=== PATIENT | female | born 1955 | race Caucasian/White ===

== ENCOUNTER 2023-12-14 05:54 | Day surgery (SDC) | payer MEDICARE, MEDICAID, SELFPAY ==
[2023-11-12 10:19] VITALS: BMI 23.4
--- NOTE | 2023-12-14 07:11 | PM.HPGS ---
History of Present Illness History of Present Illness Consent: Risks, benefits, and alternatives have been discussed and questions answered. Patient agrees to proceed with procedure. Chief complaint: Neoplasm Screening Narrative: Gilma Recio is a 68 year old female Referred for colon cancer screening. Review of Systems Review of Systems: All systems reviewed & are unremarkable except as noted in HPI and below PMFSH Past Medical History Medical History HTN (hypertension) Smoker Social History Social History Smoking packs per day: 0.5 Smoking cigarettes per day: 10.0 Smoking status: Current every day smoker Substance use type: does not use Meds Home Medications and Allergies Home Medications Medication Instructions Recorded Confirmed Type Vitamin D3 1 tab-cap PO DIRECTED 11/26/23 12/14/23 History amlodipine 10 mg tablet 10 mg PO DAILY 11/26/23 12/14/23 History calcium 1 tab-cap PO DIRECTED 11/26/23 12/14/23 History losartan 100 mg tablet 100 mg PO DIRECTED 11/26/23 12/14/23 History mecobalamin (vitamin B12) 1 tab-cap PO DIRECTED 11/26/23 12/14/23 History Allergies Allergy/AdvReac Type Severity Reaction Status Date / Time No Known Allergies Allergy Mild Verified 12/14/23 07:24 Exam Resp: Auscultation: clear to auscultation bilaterally Cardio: Rate: regular rate Rhythm: regular rhythm GI: GI Palp: Yes Soft to palpation and No Tenderness to palpation present (GI) Assessment and Plan Assessment and plan (1) Colon cancer screening: Code(s): Z12.11 - Encounter for screening for malignant neoplasm of colon Status: Acute Assessment and Plan: Colonoscopy with possible biopsy or polypectomy or cautery or injection of substances.
[2023-12-14 07:26] VITALS: BP 126/82; PULSE 97; RESP 16; TEMP 36.5; O2SAT 100
[2023-12-14] MEDS: LACTATED RINGERS 1,000 ML 150 ML IV CONT (07:36)
--- NOTE | 2023-12-14 07:41 | P.PNAN_ITS ---
Anes - Initial Pre Proc Eval Procedure: Operation Date: 12/14/23 08:00 Proposed Procedures p Screening Colonoscopy - David Delgado MD Date/Time: 12/14/23 07:41 Surgeon: David Delgado MD Pre Op Diagnosis: Neoplasm Screening Patient Data Age: 68 Gender: F Height: 1.57 m Weight: 56.3 kg Last Vital Signs Temp 36.5 C 12/14/23 07:26 Pulse 97 12/14/23 07:26 Resp 16 12/14/23 07:26 BP 126/82 12/14/23 07:26 Pulse Ox 100 12/14/23 07:26 O2 Del Method Room Air 12/14/23 07:26 Allergies Allergy/AdvReac Type Severity Reaction Status Date / Time No Known Allergies Allergy Mild Verified 12/14/23 07:24 Home Medications Medication Instructions Recorded Confirmed Type Vitamin D3 1 tab-cap PO DIRECTED 11/26/23 12/14/23 History amlodipine 10 mg tablet 10 mg PO DAILY 11/26/23 12/14/23 History calcium 1 tab-cap PO DIRECTED 11/26/23 12/14/23 History losartan 100 mg tablet 100 mg PO DIRECTED 11/26/23 12/14/23 History mecobalamin (vitamin B12) 1 tab-cap PO DIRECTED 11/26/23 12/14/23 History Patient hx anesthesia problems: none Family hx anesthesia problems: none Results Review: All pre-operative results and documents have been reviewed as part of the pre- operative evaluation. [facility] Past Medical History Medical History HTN (hypertension) Smoker Social History Social History Smoking packs per day: 0.5 Smoking cigarettes per day: 10.0 Smoking status: Current every day smoker Substance use type: does not use Anes - Eval Final PreProcedure Day of Procedure 12/14/23 07:41 Patient weight: normal Heart: regular rate and rhythm Lungs: clear to auscultation Airway: Mallampati scale class II Neurological: alert and oriented Last oral intake: >/= 8 hours ASA classification: III Emergent: no Anesthetic plan: proceed Anesthesia type and monitoring: general GIVS and standard monitoring Results Review: All pre-operative results and documents have been reviewed as part of the pre- operative evaluation. Informed Consent: The patient's anesthetic plan and its attendant risks and benefits were discussed with the patient/family/POA. Questions were solicited and answers provided to the satisfaction of the patient/family/POA.
[2023-12-14 08:23] VITALS: BP 111/68; PULSE 76; RESP 15; O2SAT 99
[2023-12-14 08:33] VITALS: BP 111/75; PULSE 73; RESP 16; O2SAT 100
--- NOTE | 2023-12-14 08:33 | WPDANESPN ---
Anes - Prog Note Post-Op Date/Time: 12/14/23 08:33 Cardiovascular status: normal Respiratory status: normal Airway patency: baseline Mental status: baseline Post-Op hydration status: normal Vital Signs: Last Vital Signs Temp 36.5 C 12/14/23 07:26 Pulse 76 12/14/23 08:23 Resp 15 12/14/23 08:23 BP 111/68 12/14/23 08:23 Pulse Ox 99 12/14/23 08:23 O2 Del Method Room Air 12/14/23 08:23 Pain Score (VAS): 0/10 I/O: Intake & Output 12/13/23 12/14/23 12/14/23 23:59 07:59 15:59 Intake Total 400 Balance 400 Patient Feedback: Patient satisfied with anesthetic care.
[2023-12-14 08:43] VITALS: BP 125/67; PULSE 70; RESP 16; O2SAT 100
== END 2023-12-14 08:50 | disposition home or self-care (01) ==
PROVIDERS: PCP Family Medicine; Visit Provider Internal Medicine Gastroenterology
PROC: 0DJD8ZZ Inspection of Lower Intestinal Tract, Via Natural or Artificial Opening Endoscopic (ICD-10-PCS; CPT 45378; principal; 2023-12-14 08:00)
DX: Z12.11 Encounter for screening for malignant neoplasm of colon (principal); D12.5 Benign neoplasm of sigmoid colon; K57.30 Diverticulosis of large intestine without perforation or abscess without bleeding; K64.8 Other hemorrhoids
CPT/HCPCS: 45385

== ENCOUNTER 2023-12-14 07:00 | Outpatient (NON) | payer MEDICARE, MEDICAID, SELFPAY | END 2023-12-14 07:01 | disposition home or self-care (01) | LOC: ANHLAB 12-15 07:08 | PROVIDERS: PCP Family Medicine; Visit Provider Internal Medicine Gastroenterology | DX: Z12.11 Encounter for screening for malignant neoplasm of colon (principal); D12.5 Benign neoplasm of sigmoid colon | CPT/HCPCS: 88305 ==

== ENCOUNTER 2024-06-12 14:07 | Outpatient (CLI) | payer MEDICARE, MEDICAID, SELFPAY ==
--- NOTE | ~2024-06-12 | MM_ITS ---
EXAMINATION: MM screening [facility] BI w sandra HISTORY: Screening TECHNIQUE: Craniocaudal and mediolateral oblique 3-D tomosynthesis images were obtained and synthetic 2-D images were generated. CAD analysis was submitted and interpreted. COMPARISON: No prior mammogram is available for comparison at this institution. BREAST PARENCHYMAL COMPOSITION: Not dense: There are scattered areas of fibroglandular density. FINDINGS: There is no evidence of suspicious mass, calcification, or architectural distortion to sugg est malignancy in either breast. There has been no suspicious interval change. IMPRESSION: 1. No mammographic evidence of malignancy. 2. Recommend routine screening mammography in one year. BI-RADS Category 1: Negative Reviewed, dictated and finalized at location B. NSE ISSUER
== END 2024-06-12 14:08 | disposition home or self-care (01) ==
LOC: ANHIMG 14:08
PROVIDERS: PCP Family Medicine; Visit Provider Family Medicine
DX: Z12.31 Encounter for screening mammogram for malignant neoplasm of breast (principal)
CPT/HCPCS: 77063; 77067

== ENCOUNTER 2025-05-31 08:08 | Outpatient (CLI) | payer MEDICARE, MEDICAID, SELFPAY ==
--- NOTE | ~2025-05-31 | CT_ITS ---
EXAMINATION:CT lung screening DATE: 05/31/2025 08:26 INDICATION: Screening TECHNIQUE: Computed tomography (CT) of the chest was performed without intravenous contrast. The dose-length product (DLP) was 45.59 mGy-cm. COMPARISON: None. FINDINGS: No discretely defined nodular mass present. There is nodular fibrous appearing changes in the posterior right lung apex with air cysts formation. Parenchymal band formation in the right apical region has slightly nodular appearance and measures approximately 2.1 x 1.5 cm, image 18 series 4. Mild apical thickening also present in this area. Scattered calcified granulomas noted. Calcified granulomata also noted in the visualized portions of the liver and spleen in the upper abdomen. Heart size normal. Great vessels normal size. No bulky lymphadenopathy or masses or significant pericardial effusion. Extensive coronary artery calcification and/or stenting present. Diffuse degenerative changes in the bones which otherwise appear intact. No consolidation effusion or pneumothorax. Centrilobular emphysematous changes especially in the upper lobes noted. IMPRESSION: 1. No discretely defined lesion or mass, however there is nodular fibrosing appearing changes in the right lung apex. LUNG RADS-3. 2. Several other chronic appearing findings as above. RECOMMENDATION: Correlate with follow-up low-dose lung cancer screening chest CT in 6 months. Reviewed, dictated and finalized at location A. NDER MACHINE OPERATOR HELPER IMPRESSION: 1. No discretely defined lesion or mass, however there is nodular fibrosing pollo earing changes in the right lung apex. LUNG RADS-3. 2. Several other chronic appearing findings as above. RECOMMENDATION: Correlate with follow-up low-dose lung cancer screening chest C T in 6 months.
--- NOTE | ~2025-05-31 | DEXA_ITS ---
Bone Density Report Name: SOLO TOVAR Age: 69 Sex: Female Ethnicity: White Date of : 1955 Indication: postmenopausal; screening for osteoporosis; Referring Provider: JODIE, BLANCO Conroy Study: Bone densitometry was performed. Exam Date: May 31, 2025 Accession number: [id number] Bone Density: Region BMD T-score Z-score Classification AP Spine(L1-L4) 0.757 -2.6 -0.6 Osteoporosis Femoral Neck (Left) 0.737 -1.0 0.7 Normal Total Hip (Left) 0.797 -1.2 0.2 Osteopenia Femoral Neck (Right) 0.677 -1.6 0.2 Osteopenia Total Hip (Right) 0.761 -1.5 -0.1 Osteopenia Total Hip Mean 0.779 -1.4 0.1 Osteopenia World Health Organization criteria for BMD impression classify patients as: Normal (T-score at or above -1.0), Osteopenia (T-score between -1.0 and -2.5), or Osteoporosis (T-score at or below -2.5). 10-year Fracture Risk: FRAX not reported because: Some T-score for Spine Total or Hip Total or Femoral Neck at or below -2.5 Clinical Information Provided by Patient: Smokes Has used the following medications: Vitamin D, Calcium Patient maximum height was 62 Menopause Age: 53 No regular weight bearing exercise Drinks caffeinated beverages Onset of menses at age 17 Number of children 2 Impression: The patient has osteoporosis, based on the Total Spine T-score. The patient has risk factors, including: smoking. Discussion: INCREASED RISK OF FRACTURE. BONE DENSITY IS UNDESIRABLY LOW AT ONE OR MORE SKELETAL SITES, CONSISTENT WITH POSTMENOPAUSAL OSTEOPOROSIS. This patient's lowest T-score meets the World Health Organization's (WHO) criteria for osteoporosis at one or more sites (T-score -2.5 or below). In untreated patients, the risk of osteoporotic fracture increases approximately two-fold for each 1.0 SD decrease in T-score. Low bone density is not the only risk factor for fracture; also consider factors such as patient's age, frailty or poor health, risk of falling, risk of injury, previous osteoporotic fracture, family history of osteoporosis, cigarette smoking, low body weight, etc. Not everyone with low bone mineral density has osteoporosis; osteomalacia and other metabolic bone disorders should also be considered. Patients who have osteoporosis should be evaluated for specific diseases and conditions (secondary causes) that may cause or contribute to bone loss. The [place] [employer]ocr[employer] (AACE) and National Osteoporosis Foundation (NOF) recommend pharmacologic intervention for all postmenopausal women whose T-score is in this range. The patient should follow a healthful lifestyle (good nutrition with adequate calcium and vitamin D, and appropriate weight-bearing exercise). Follow-Up: Consider a repeat BMD and Vertebral Fracture Assessment (VFA) exam in 2 years or sooner if medically necessary, to reassess this patient's status. Reported by: TIGRE on 05/31/2025 9:04:00 AM. Reviewed, dictated and finalized at location A.
== END 2025-05-31 08:09 | disposition home or self-care (01) ==
LOC: MICIMG 08:08
PROVIDERS: PCP Family Medicine; Visit Provider Nurse Practitioner Family
DX: Z12.2 Encounter for screening for malignant neoplasm of respiratory organs (principal); Z87.891 Personal history of nicotine dependence; Z13.820 Encounter for screening for osteoporosis; Z78.0 Asymptomatic menopausal state; M81.0 Age-related osteoporosis without current pathological fracture; M85.852 Other specified disorders of bone density and structure, left thigh; M85.851 Other specified disorders of bone density and structure, right thigh
CPT/HCPCS: 71271; 77080